=== PATIENT | female | born 1985 | race Caucasian/White ===

== ENCOUNTER 2019-02-02 07:54 | Day surgery (SDC) | payer OTHER ==
[2019-02-02] MEDS ORDERED: LIDOCAINE 4% SOLUTION 50 ML BTL (08:56)
[2019-02-02] MEDS ORDERED: FENTAnyl 50 MCG/ML VIAL (09:40)
[2019-02-02] MEDS ORDERED: MIDAZOLAM 1 MG/ML 2 ML INJ ×2 (09:40)
== END 2019-02-02 11:04 | disposition home or self-care (01) ==
LOC: GIL 07:54
DX: K29.50 Unspecified chronic gastritis without bleeding (principal); D13.1 Benign neoplasm of stomach
CPT/HCPCS: 43239; 84703